=== PATIENT | female | born 1980 | race Hispanic/Latino ===

== ENCOUNTER 2016-08-30 08:04 | Inpatient (IN) | payer MEDICARE ==
--- NOTE | 2016-08-09 12:13 | Anesthesia Consultation ---
Anesthesia Consult and Med Hx Date of service: 08/30/16 - Airway Anesthetic Teeth Evaluation: Poor ROM Head & Neck: Adequate Mental/Hyoid Distance: Adequate Mallampati Class: Class II Intubation Access Assessment: Probably Good - Pulmonary Exam CTA: Yes - Cardiac Exam Cardiac Exam: RRR - Pre-Operative Health Status ASA Pre-Surgery Classification: ASA3 Proposed Anesthetic Plan: General - Pre-Anesthesia Comment Pre-Anesthesia Comments: edentulous on top. Remaining lower teeth broken and decayed - Pulmonary Hx Sleep Apnea: Yes (1YR, CPAP) - Central Nervous System Hx Seizures: Yes (6 WKS OF AGE - 13YRS OF AGE) - Other Systems Hx Obesity: Yes
[2016-08-09 12:41] LABS: Basophils % (Auto) 0.4 % (0.0-1.8); Hematocrit 39.8 % (30.3-42.9); Hemoglobin 13.2 gm/dl (10.1-14.3); Mean Corpuscular HGB Conc 33 % (30-34); Mean Corpuscular Hemoglobin 27 pg (28-32); Mean Corpuscular Volume 81 fl (79-97); Platelet Count 213 K/mm3 (140-440); Red Cell Distribution Width 14.7 % (13.2-15.2); White Blood Count 6.4 K/mm3 (4.5-11.0)
[2016-08-09 13:02] LABS: Alanine Aminotransferase 24 units/L (7-56); Albumin 4.1 g/dL (3.9-5); Albumin/Globulin Ratio 1.4 %; Alkaline Phosphatase 113 units/L (35-129); Anion Gap 17 mmol/L; Bilirubin,Total 0.6 mg/dL (0.1-1.2); Blood Urea Nitrogen 9 mg/dL (7-17); Calcium 9.9 mg/dL (8.4-10.2); Carbon Dioxide 25 mmol/L (22-30); Chloride 103.5 mmol/L (98-107); Glucose 108 mg/dL (65-100); Sodium 141 mmol/L (137-145); Total Protein 7.1 g/dL (6.3-8.2)
[~2016-08-30 08:04] MED LIST: LACTATED RINGERS 1,000 ML IV SCH; PEPCID IV NR; VERSED IV NR
[2016-08-30] MEDS ORDERED: DILAUDID IV PRN ×2 (09:17→14:58)
[2016-08-30] MEDS ORDERED: ZOFRAN IV PRN ×2 (09:17→14:58)
[2016-08-30] MEDS ORDERED: TRANSDERM-SCOP TD NR (10:00)
[2016-08-30] MEDS ORDERED: VERSED IV NR ×2 (10:00→15:01)
[2016-08-30] MEDS ORDERED: REGLAN IV NR (10:00)
[2016-08-30] MEDS ORDERED: FLAGYL 500 MG/100 ML 500 MG/100 ML BAG IV NR (11:00)
[2016-08-30] MEDS ORDERED: ANCEF/STERILE WATER 2 GM/20 ML IV NR (11:00)
[2016-08-30] MEDS ORDERED: LOVENOX SUB-Q NR (12:00)
[2016-08-30] MEDS ORDERED: SUBLIMAZE ONE (14:37)
[2016-08-30] MEDS ORDERED: ZEMURON IV ONE (14:37)
[2016-08-30] MEDS ORDERED: XYLOCAINE MPF 2% ONE (14:37)
[2016-08-30] MEDS ORDERED: DIPRIVAN 10 MG/ML IV ONE (14:38)
[2016-08-30] MEDS ORDERED: APRESOLINE IV PRN (14:58)
[2016-08-30] MEDS ORDERED: MYLICON PO PRN (14:58)
--- NOTE | 2016-08-30 15:09 | Admit Criteria Form ---
Admission Criteria Documentation: AMBULATORY SURGERY EXCEPTION CRITERIA Ambulatory Surgery Exception Criteria ( Place 'X' for any and all applicable criteria): Surgery or procedure performed on ambulatory basis may require inpatient stay for[A] ANY ONE of the following(1)(2)(3)(4)(5)(6)(7)(8)(9): [X] I. A preoperative situation, condition, or finding that warrants inpatient stay as indicated by ANY ONE of the following: [] a) Inpatient care needed because of severity of a disease or condition rather than the surgery (eg, severe cardiac or respiratory disease, severe infection) (15) (16 ) (17) (18) [] b) Emergent procedure (eg, angioplasty for acute ischemia)(19) [] c) Complex surgical approach or situation as indicated by ANY ONE of the following(3): [] i) Open approach needed instead of usual endoscopic, transcatheter, or other less invasive procedure [] ii) Difficult approach because of previous operation [] iii) Airway monitoring required after open neck procedures(20)(21) [] iv) Large mass requiring unusually extensive dissection [] v) Additional complicating feature requiring inpatient care (eg, drain management)(22(23): [X] d) Major surgery in a pt with high anesthetic risk as indicated by ANY ONE of the following (2)(3)(5)(7)(8): [X] i) ASA risk class III or higher (severe systemic disease impairing function) [D] [] ii) Advanced age (eg, older than 85 years)(14)(24) [] iii) Symptomatic heart failure(25) [] iv) Symptomatic asthma or COPD(8)(21) [] v) Morbid obesity with hemodynamic or respiratory problems(20)( 21)(26)(27) [] vi) Obstructive sleep apnea(20)(21) [] vii) Former premature infants who are younger than 60 weeks [] viii) High risk for severe postoperative abnormalities (eg, severe postoperative hypocalcemia after parathyroidectomy for severe hyperparathyroidism)(27)( 28) [] ix) Unstable angina(25) [] e) Drug-related risk requiring inpatient stay as indicated by ANY ONE of the following(5)(10)(14)(32)(33) [] i) Procedure requires discontinuing drugs or other therapy (eg , antiarrhythmic medication, antiseizure medication), which necessitates inpatient observation or treatment.(18)(31) [] ii) Major surgery and high risk drug use as indicated by ANY ONE of the following: [] 1) Active abuse of cocaine or similar drug [] 2) Monoamine oxidase inhibitor use [] 3) Other drug identified as posing risk [] f) Inadequate outpatient care situation as indicated by ANY ONE of the following(5)(10)(14)(32)(33) [] i) Patient lives remote from medical facility and procedure has urgent complication potential, and temporary nearby residence cannot be arranged [] ii) Patient will have postprocedure incapacitation and inadequate assistance at home, or alternative level of care cannot be arranged. [] iii) Patient will have long general anesthesia or procedure side effect resolution time, and competent person to stay with patient on first postoperative night at home or alternative level of care cannot be arranged. []iv) Other inadequate outpatient situation that cannot be handled by other means [] II. A perioperative event, condition, or finding that warrants inpatient stay as indicated by ANY ONE of the following (1)(2)(3): [] a) Inadequate physiologic recovery: cardiovascular, respiratory, or hemodynamic status not normal or near preoperative baseline(18) [] b) Hemodynamic instability [] c) Patient not alert with near normal or baseline mental status [] d) Temperature not normal or as expected and not appropriate for outpatient treatment of condition [] e) Ambulatory or appropriate activity level status not yet achieved post procedure [E](34)(35)(36) [] f) Operative site not appropriate (eg, unexpected or excessive drainage or bleeding) [] g) Postoperative effects not resolved or adequately managed (eg, significant pain or vomiting not appropriate for outpatient or next level of care)(10)(12) [] h) Complicating features requiring inpatient care as indicated by ANY ONE of the following(37): [] i) Severe complications of procedure (eg, bowel injury, airway compromise, vascular injury,severe hemorrhage) [] ii) Extensive (eg, dissection far beyond usual scope of procedure ) or prolonged (eg, 120 minutes beyond usual) surgery needed requiring inpatient postoperative care [] iii) Conversion to an open or complex procedure that requires inpatient care (eg, open vs laparoscopic cholecystectomy, abdominal vs vaginal hysterectomy)(38) [] iv) Comorbid condition or test result identified during or post procedure that requires inpatient care (7) [] v) Malignant hyperthermia(30) [] vi) Other complicating feature requiring inpatient care(22)(23) Inpatient stay may be needed until ALL of the following are present (1)(2)(3)(4) (5)(6)(10)(14)(33)(40): []a) Physiologic recovery: cardiovascular, respiratory, and hemodynamic status normal or near preoperative baseline []b) Hemodynamic stability []c) Patient alert, with near normal or baseline mental status []d) Temperature appropriate: patient afebrile or temperature appropriate for outpt treatment of condition []e) Activity level appropriate: ambulatory or appropriate activity level post procedure []f) Operative site appropriate as indicated by ALL of the following: []i) Site dry or with expected drainage []ii) Any blood noted is as expected for procedure. []g) Postoperative effects resolved or managed as indicated by ALL of the following: []i) Pain management appropriate for outpatient (or next level of) care(10) []ii) Minimal nausea and vomiting: if present, successfully treated with oral medication(12) []iii) Headache, dizziness, or drowsiness (if present) are mild. []h) Voiding status acceptable as indicated by ANY ONE of the following: []i) Voiding spontaneously []ii) No voiding but instructions given for follow-up in 6 to 8 hours []iii) Urinary catheter in place, and instructions given for follow-up []i) Complicating features requiring inpatient care manageable at a lower level of care(37) []j) Comorbid conditions manageable at a lower level of care(37) The original [employer] content created by [employer] has been revised. The portions of the content which have been revised are identified through the use of italic text or in bold, and [facility] [employer] has neither reviewed nor approved the modified material. All other unmodified content is copyright [employer]. Please see references footnoted in the original [employer] edition 2016 Admission Criteria Met: Yes
[2016-08-30] MEDS ORDERED: MARCAINE-EPI 0.5%-1:200,000 INFILTRATI ONE (15:16)
[2016-08-30] MEDS ORDERED: XYLOCAINE 1% 20 mL ONE (15:16)
[2016-08-30] MEDS ORDERED: QUELICIN ONE (15:29)
[2016-08-30] MEDS ORDERED: WATER FOR IRRIG STERILE IR ONE (15:31)
[2016-08-30] MEDS ORDERED: DECADRON ONE (15:53)
[2016-08-30] MEDS ORDERED: MARCAINE-EPI/PF 0.5%-1:200,000 INFILTRATI ONE (15:58)
[2016-08-30] MEDS ORDERED: NACL 0.9% IR ONE ×2 (15:58)
[2016-08-30] MEDS ORDERED: XYLOCAINE 1% 20 mL INFILTRATI ONE (15:58)
[2016-08-30] MEDS ORDERED: ZOFRAN ONE ×3 (16:23→16:24)
[2016-08-30] MEDS ORDERED: NEOSTIGMINE ONE (16:23)
[2016-08-30] MEDS ORDERED: ROBINUL ONE ×2 (16:24)
[2016-08-30] MEDS ORDERED: DILAUDID ONE (17:02)
--- NOTE | 2016-08-30 18:09 | Operative Report ---
Operative Report Operative Report: DATE OF PROCEDURE: 08/30/2016 SURGEON: Neil Banda M.D. UI SOFTWARE DEVELOPER: Willy Brody MD PREOPERATIVE DIAGNOSIS: Morbid obesity. POSTOPERATIVE DIAGNOSES: Morbid obesity PROCEDURES PERFORMED: 1. Laparoscopic gastric bypass. 2. EGD. ANESTHESIA: General endotracheal tube intubation. SPECIMENS: None. ESTIMATED BLOOD LOSS: Less than 10 mL. FINDINGS: Normal anatomy. COMPLICATIONS: None. INDICATION: is a 36-year-old female with history of morbid obesity. She signed informed consent and expressed understanding of risks and benefits. DESCRIPTION OF PROCEDURE: Patient was brought to the OR suite, laid in supine position. Bilateral lower extremity SCDs were placed. General anesthesia was induced via successful endotracheal tube intubation. Patient's abdomen was prepped and draped in sterile fashion. Using Optiview technique, a 12-mm trocar was placed into the abdominal cavity under direct vision. There was noted to be no gross injury to any intraabdominal structures. 5 working trocars were placed under direct visualization, 12 mm in the right mid abdomen mid clavicular line and four 5-mm trocars in the right upper quadrant, epigastric, left upper quadrant and left mid abdomen. At this time, the ligament of Treitz identified and followed down approximately 30 cm and the jejunum was transected. The distal segment of jejunum was then traced for approximately 75 cm and a stable gejp-yj-rkuf jejunojejunostomy was performed. The common enterotomy was closed with 2 firings of the endoscopic stapler. The mesenteric defect was closed with running Surgidac suture. This anastomosis was found to be patent without kink, obstruction or bleeding. At this time, the patient was placed in steep reverse Trendelenburg position. A liver retractor was placed through the epigastric port to elevate the left lateral lobe of the liver. A small gastric pouch was formed. The Amalia limb was then brought in an antegastric antecolic fashion and secured with 2 stay sutures to the gastric pouch. After this, the enterotomies were made with Harmonic scalpel, and a hofk-ov-lfoo stapled gastrojejunostomy was performed with a mechanical stapler. After this, a 2-layer running closure using Polysorb suture were done, the first being mucosal approximation prior to completion of the first layer. The anesthesia passed and an EGD scope beyond the anastomosis to act as a stent. The first layer was completed, the second was then performed. After this, the EGD was retracted slightly. A bowel clamp was placed in a proximal Amalia limb. The anastomosis was submerged under saline. Via intraluminal EGD insufflation, there was noted be no bubbles in the saline indicating an airtight anastomosis. There was noted to be no obstruction or bleeding intraluminally in the pouch or the anastomosis. At this time, the scope was removed. The saline was aspirated. Tiseel was placed over the anastomosis. All trocars were removed under direct visualization and the abdomen was then desufflated. The skin incisions were closed with 4-0 Monocryl followed by Dermabond dressings. Patient was awoken and taken to recovery in stable condition. All counts were correct.
[2016-08-30] MEDS: DILAUDID IV PRN ×5 (19:00→21:46)
[2016-08-30] MEDS ORDERED: FLAGYL 500 MG/100 ML 500 MG/100 ML BAG IV SCH (20:00)
[2016-08-30] MEDS ORDERED: ANCEF/NS 1 GM/50 ML 1 GM/50 ML BAG IV SCH (20:00)
[2016-08-30] MEDS: LACTATED RINGERS 1,000 ML IV SCH (22:44)
[2016-08-30] MEDS: ANCEF/NS 1 GM/50 ML 1 GM/50 ML BAG IV SCH (23:35)
[2016-08-31] MEDS: FLAGYL 500 MG/100 ML 500 MG/100 ML BAG IV SCH ×2 (00:02→08:20)
[2016-08-31] MEDS: TORADOL IV SCH ×3 (00:03→10:00)
[2016-08-31] MEDS: LACTATED RINGERS 1,000 ML IV SCH (06:01)
[2016-08-31 07:55] LABS: Phosphorous 2.8 mg/dL (2.5-4.5)
[2016-08-31] MEDS ORDERED: FLUARIX QUAD 2016-2017(36 MOS+) IM ONE (08:01)
[2016-08-31] MEDS: ANCEF/NS 1 GM/50 ML 1 GM/50 ML BAG IV SCH (08:19)
[2016-08-31] MEDS ORDERED: LOVENOX SUB-Q SCH (10:00)
[2016-08-31 10:50] LABS: Basophils % (Auto) 0.1 % (0.0-1.8); Hematocrit 35.5 % (30.3-42.9); Hemoglobin 11.5 gm/dl (10.1-14.3); Mean Corpuscular HGB Conc 33 % (30-34); Mean Corpuscular Hemoglobin 27 pg (28-32); Mean Corpuscular Volume 82 fl (79-97); Platelet Count 215 K/mm3 (140-440); Red Blood Count 4.33 M/mm3 (3.65-5.03); Red Cell Distribution Width 15.5 % (13.2-15.2); White Blood Count 10.9 K/mm3 (4.5-11.0)
[2016-08-31 11:04] LABS: Alanine Aminotransferase 26 units/L (7-56); Albumin 3.8 g/dL (3.9-5); Albumin/Globulin Ratio 1.4 %; Alkaline Phosphatase 86 units/L (35-129); Anion Gap 15 mmol/L; BUN/Creatinine Ratio 15.71; Bilirubin,Total 0.8 mg/dL (0.1-1.2); Blood Urea Nitrogen 11 mg/dL (7-17); Calcium 9.7 mg/dL (8.4-10.2); Carbon Dioxide 27 mmol/L (22-30); Chloride 103.3 mmol/L (98-107); Glucose 104 mg/dL (65-100); Potassium 4.6 mmol/L (3.6-5.0); Sodium 141 mmol/L (137-145); Total Protein 6.6 g/dL (6.3-8.2)
--- NOTE | 2016-08-31 12:05 | Discharge Summary ---
Providers - Providers Date of Admission: 08/30/16 08:04 Date of discharge: 08/31/16 Attending physician: NATA HU Primary care physician: TIRE RECAPPING MACHINE OPERATOR Hospitalization Reason for admission: post op observation Condition: Stable Procedures: Lap RYBG Hospital course: admitted for overnight observation.POD1 doing well tolerating sips and ambulating Disposition: DISCHARGED TO HOME OR SELFCARE Core Measure Documentation - Palliative Care Palliative Care/ Comfort Measures: Not Applicable - Core Measures Any of the following diagnoses?: none Exam - Physical Exam Narrative exam: NAD lungs clear heart RRR abd soft, appropriate wound TTP, wounds c/d/i Neuro: AAOx3 - Constitutional Vitals: Temp Pulse Resp BP Pulse Ox 97 F L 71 18 117/66 95 08/31/16 07:00 08/31/16 07:00 08/31/16 07:00 08/31/16 07:00 08/31/16 07:59 Plan Activity: advance as tolerated Diet: other (bariatric stage 1) Wound: keep clean and dry Special Instructions: no heavy lifting Follow up with: PRIMARY CAREMD [Primary Care Provider] - 7 Days
[2016-08-31 12:33] VITALS: BP 114/65
== END 2016-08-31 13:10 | disposition home or self-care (01) | DRG 327 ==
LOC: 3A 08:04 → 2B-SURG 18:57
PROVIDERS: ADMIT Surgery; ATTEND Surgery
PROC: 0D164ZA Bypass Stomach to Jejunum, Percutaneous Endoscopic Approach (ICD-10-PCS; principal; 2016-08-30)
PROC: 0DJ08ZZ Inspection of Upper Intestinal Tract, Via Natural or Artificial Opening Endoscopic (ICD-10-PCS; 2016-08-30)
DX: K21.9 Gastro-esophageal reflux disease without esophagitis (principal); Z68.42 Body mass index [BMI] 45.0-49.9, adult; E66.01 Morbid (severe) obesity due to excess calories; G47.30 Sleep apnea, unspecified; R53.83 Other fatigue; G35 Multiple sclerosis; M25.50 Pain in unspecified joint
CPT/HCPCS: 36415; 80053; 83735; 84100; 85025; 90686; 94760; A4217; C9250; J0330; J0690; J1100; J1170; J1650; J1885; J2250; J2405; J2704; J2710; J2765; J3010; J7120

== ENCOUNTER 2016-09-07 19:02 | Emergency (ER) | payer MEDICARE ==
[2016-09-07 20:33] LABS: Basophils % (Auto) 0.9 % (0.0-1.8); Hematocrit 41.5 % (30.3-42.9); Hemoglobin 13.7 gm/dl (10.1-14.3); Mean Corpuscular HGB Conc 33 % (30-34); Mean Corpuscular Hemoglobin 26 pg (28-32); Mean Corpuscular Volume 80 fl (79-97); Platelet Count 249 K/mm3 (140-440); Red Blood Count 5.19 M/mm3 (3.65-5.03); Red Cell Distribution Width 15.8 % (13.2-15.2); White Blood Count 7.4 K/mm3 (4.5-11.0)
[2016-09-07 20:53] LABS: Alanine Aminotransferase 43 units/L (7-56); Albumin 3.9 g/dL (3.9-5); Alkaline Phosphatase 102 units/L (35-129); Anion Gap 24 mmol/L; Bilirubin,Total 0.9 mg/dL (0.1-1.2); Blood Urea Nitrogen 10 mg/dL (7-17); Calcium 10.7 mg/dL (8.4-10.2); Carbon Dioxide 19 mmol/L (22-30); Chloride 100.9 mmol/L (98-107); Glucose 93 mg/dL (65-100); Lipase 19 units/L (13-60); Sodium 138 mmol/L (137-145)
[2016-09-07 21:08] LABS: Potassium 5.5 mmol/L (3.6-5.0)
--- NOTE | 2016-09-08 00:45 | Emergency Department Report ---
HPI - General Chief Complaint: Abdominal Pain Time Seen by Provider: 09/08/16 00:19 - HPI HPI: This is a 36-year-old female presents to the emergency department with a complaint of left middle abdominal pain. The patient had a gastric Amalia- en-Y bypass procedure done by Dr. Banda last Tuesday, 8 days ago. She had some normal discomfort since the procedure but this morning the pain became much more intense, 9 out of 10. It is associated with nausea without vomiting. She denies any fever. She's been taking the liquid Lortab for her discomfort without any relief. She is having normal bowel movements and urination. She denies any skin color change or signs of infection from the laparoscopic ports. She contacted the office of Dr. Morse was told to come to the emergency department for further evaluation and treatment. ED Past Medical Hx - Past Medical History Previous Medical History?: Yes Hx Hypertension: No Hx Congestive Heart Failure: No Hx Diabetes: No Hx Liver Disease: No Hx Renal Disease: No Hx Seizures: Yes (6 WKS OF AGE - 13YRS OF AGE) Hx Asthma: No Hx COPD: No Hx HIV: No - Surgical History Past Surgical History?: Yes Hx Cholecystectomy: Yes () Additional Surgical History: gastric bypass 08/30/16 - Social History Smoking Status: Never Smoker Substance Use Type: None - Medications Home Medications: Home Medications Medication Instructions Recorded Confirmed Last Taken Type No Known Home Medications [No 08/02/16 08/02/16 Unknown History Reported Home Medications] ED Review of Systems ROS: Stated complaint: PREV GASTRIC BYPASS SURGERY/SEVERE PAIN Other details as noted in HPI Comment: All other systems reviewed and negative Constitutional: denies: chills, fever Eyes: denies: eye pain, eye discharge, vision change ENT: denies: ear pain, throat pain Respiratory: denies: cough, shortness of breath, wheezing Cardiovascular: denies: chest pain, palpitations Gastrointestinal: abdominal pain, nausea. denies: vomiting Genitourinary: denies: urgency, dysuria, discharge Musculoskeletal: denies: back pain, joint swelling, arthralgia Skin: denies: rash, lesions Neurological: denies: headache, weakness, paresthesias Physical Exam - Physical Exam Vital Signs: Vital Signs 09/07/16 09/08/16 09/08/16 19:39 00:14 00:16 Temperature 98.2 F Pulse Rate 79 60 61 Respiratory 18 18 Rate Blood Pressure 138/80 161/68 O2 Sat by Pulse 100 99 Oximetry 09/08/16 00:21 Temperature Pulse Rate Respiratory 18 Rate Blood Pressure O2 Sat by Pulse 98 Oximetry Physical Exam: GENERAL: The patient is well-developed well-nourished. HEENT: Normocephalic. Atraumatic. Extraocular motions are intact. Patient has moist mucous membranes. Pupils equal reactive to light bilaterally. NECK: Supple. Trachea is midline. CHEST/LUNGS: Clear to auscultation. There is no respiratory distress noted. HEART/CARDIOVASCULAR: Regular. There is no tachycardia. There is no gallop rub or murmur. ABDOMEN: Abdomen is soft. There is some tenderness to palpation to the left mid abdomen. No guarding or rebound tenderness. Morbidly obese habitus. Patient has normal bowel sounds. There is no abdominal distention. SKIN: There are 3 specific laparoscopic incision seen on the abdominal wall but they do not appear infected without any erythema, bleeding, weeping or drainage. NEURO: The patient is awake, alert, and oriented. The patient is cooperative. The patient has no focal neurologic deficits. The patient has normal speech. MUSCULOSKELETAL: There is no tenderness or deformity. There is no limitation range of motion. There is no evidence of acute injury. ED Course Vital Signs 09/07/16 09/08/16 09/08/16 19:39 00:14 00:16 Temperature 98.2 F Pulse Rate 79 60 61 Respiratory 18 18 Rate Blood Pressure 138/80 161/68 O2 Sat by Pulse 100 99 Oximetry 09/08/16 00:21 Temperature Pulse Rate Respiratory 18 Rate Blood Pressure O2 Sat by Pulse 98 Oximetry - Consultations Consultation #1: I spoke with the bariatric surgeon community education specialist for this patient, Dr Sr, who based on the patient's level of discomfort has suggested a CT of the abdomen and pelvis. If it is positive for any acute process, he would like to be called back. Otherwise he suggests follow-up in the office. 09/08/16 06:20 ED Medical Decision Making - Lab Data Result diagrams: 09/07/16 20:15 09/08/16 01:58 - Radiology Data Radiology results: report reviewed, image reviewed interpreted by me: Abdominal x-ray shows some nonspecific nonobstructive bowel gas. CT of the abdomen and pelvis with contrast shows that there has been a previous cholecystectomy. There has been gastric bypass surgery. There is no bowel obstruction, colitis or enteritis. The appendix is normal. There is been a hysterectomy. There is no ascites, free air, abscess or adenopathy. There is intravascular air in the subcutaneous vessels of the anterior abdominal wall that is most likely iatrogenic. - Medical Decision Making 36-year-old female presents to the emergency department about 8 or 9 days postop from gastric bypass surgery. She always has some level of discomfort but it increased today. Patient's labs appeared mostly unremarkable. There was some elevation in her potassium level but was found to be hemolyzed and the repeat potassium level came back at 4.5. No signs of infection without any leukocytosis. Normal belly labs. Patient was given some IV pain medication for pain control with some improvement. An abdominal x-ray was done that showed nonspecific non-obstructive bowel gas. After speaking with the bariatric surgeon, patient had a CT of the abdomen and pelvis that did not show any bowel obstruction or any acute process. Patient will be discharged home to follow-up with Dr. Banda in the office in the next few days. We're waiting on the patient's urinalysis to see if any antibiotics need to be added for a urinary tract infection. - Differential Diagnosis postop pain, bowel obstruction, UTI, colitis Critical Care Time: No Critical care attestation.: If time is entered above; I have spent that time in minutes in the direct care of this critically ill patient, excluding procedure time. ED Disposition Clinical Impression: Postoperative pain Abdominal pain Qualifiers: Abdominal location: generalized Qualified Code(s): R10.84 - Generalized abdominal pain Disposition: DISCHARGED TO HOME OR SELFCARE Is pt being admited?: No Condition: Stable Instructions: Abdominal Pain (ED) Additional Instructions: Please follow-up with Dr. Banda in the next few days. Return to the emergency department with any intractable vomiting or fever, intractable abdominal pain, worsening of her symptoms, or any acute process. Referrals: PRIMARY CARE, [Primary Care Provider] - 3-5 Days NATA BANDA MD [Staff Physician] - 3-5 Days Time of Disposition: 06:24
[2016-09-08] MEDS ORDERED: MORPHINE IV ONE ×2 (00:55→02:14)
[2016-09-08] MEDS ORDERED: ZOFRAN IV ONE ×2 (00:55→06:01)
--- NOTE | 2016-09-08 02:38 | XRay Report ---
FINAL REPORT EXAM: XR ABDOMEN 2V HISTORY: Abd pain COMPARISON: None available. FINDINGS: Supine and upright AP views of the abdomen obtained. No gross free air. Gas scattered within non dilated bowl loops. No gross pathologic calcifications. Bony structures are grossly intact. Surgical clips right upper quadrant. IMPRESSION: Nonobstructive bowel gas pattern.
[2016-09-08] MEDS ORDERED: DILAUDID IV ONE (04:12)
[2016-09-08] MEDS ORDERED: NACL ONE (04:36)
[2016-09-08] MEDS ORDERED: ZOFRAN ONE (05:55)
--- NOTE | 2016-09-08 06:05 | Cat Scan Report ---
FINAL REPORT PROCEDURE: CT ABDOMEN PELVIS W CON TECHNIQUE: Computerized axial tomography of the abdomen and pelvis was performed after the IV injection of iodinated nonionic contrast. HISTORY: abd pain s/p gastric bypass 1 week COMPARISON: No prior studies are available for comparison. FINDINGS: Visualized lower thorax: No significant abnormality. Liver: Normal size and attenuation. Spleen: Normal size and attenuation. Gallbladder and biliary system: There has been a cholecystectomy.. Pancreas: Normal. Adrenals: Normal. Kidneys: Normal. GI tract: There has been gastric bypass surgery. There is no bowel obstruction, colitis or enteritis. The appendix is normal.. Lymph nodes and mesentery: Normal. Vasculature: Normal. Bladder: Normal. Reproductive organs: There has been a hysterectomy.. Peritoneum: There is no ascites, free air, abscess or adenopathy.. Musculoskeletal structures: No significant abnormality. Other: There is intravascular air in the subcutaneous vessels of the anterior abdominal wall which is most likely iatrogenic.. IMPRESSION: There has been a cholecystectomy.. There has been gastric bypass surgery. There is no bowel obstruction, colitis or enteritis. The appendix is normal.. There has been a hysterectomy.. There is no ascites, free air, abscess or adenopathy.. There is intravascular air in the subcutaneous vessels of the anterior abdominal wall which is most likely iatrogenic..
[2016-09-08 06:44] LABS: Bacteria,Urine 1+ /HPF (Negative); Bilirubin,Urine NEG (Negative); Blood,Urine NEG (Negative); Ketones,Urine 80 mg/dL (Negative); Leukocyte Esterase,Urine NEG (Negative); Mucus,Urine 2+ /HPF; Nitrite,Urine NEG (Negative); Protein,Urine <15 mg/dL mg/dL (Negative)
[2016-09-08 06:52] VITALS: BP 124/76
== END 2016-09-08 07:13 | disposition home or self-care (01) ==
LOC: ED 19:02
DX: R10.84 Generalized abdominal pain (principal); G89.18 Other acute postprocedural pain
CPT/HCPCS: 36415; 74020; 74177; 80053; 81001; 81025; 83690; 84132; 85025; 96374; 96375; 96376; 99284; J1170; J2270; J2405; Q9967

== ENCOUNTER 2016-09-13 00:15 | Emergency (ER) | payer MEDICARE ==
[2016-09-13 01:31] LABS: Basophils % (Auto) 0.8 % (0.0-1.8); Hemoglobin 13.6 gm/dl (10.1-14.3); Mean Corpuscular HGB Conc 33 % (30-34); Mean Corpuscular Hemoglobin 27 pg (28-32); Mean Corpuscular Volume 80 fl (79-97); Platelet Count 242 K/mm3 (140-440); Red Blood Count 5.15 M/mm3 (3.65-5.03); Red Cell Distribution Width 15.4 % (13.2-15.2); White Blood Count 8.4 K/mm3 (4.5-11.0)
[2016-09-13 01:40] LABS: Alanine Aminotransferase 37 units/L (7-56); Albumin 4.2 g/dL (3.9-5); Albumin/Globulin Ratio 1.3 %; Alkaline Phosphatase 103 units/L (35-129); Anion Gap 18 mmol/L; Bilirubin,Total 0.8 mg/dL (0.1-1.2); Blood Urea Nitrogen 9 mg/dL (7-17); Calcium 10.9 mg/dL (8.4-10.2); Carbon Dioxide 24 mmol/L (22-30); Chloride 101.6 mmol/L (98-107); Glucose 100 mg/dL (65-100); Lipase 19 units/L (13-60); Potassium 4.8 mmol/L (3.6-5.0); Sodium 139 mmol/L (137-145); Total Protein 7.5 g/dL (6.3-8.2)
[2016-09-13 05:51] LABS: Bilirubin,Urine NEG (Negative); Blood,Urine NEG (Negative); Ketones,Urine 20 mg/dL (Negative); Leukocyte Esterase,Urine NEG (Negative); Nitrite,Urine NEG (Negative)
[2016-09-13] MEDS ORDERED: NACL 0.9% 1000 ML 1,000 ML IV ONE (07:02)
[2016-09-13] MEDS ORDERED: ZOFRAN IV ONE (07:02)
[2016-09-13] MEDS ORDERED: DILAUDID IV ONE ×2 (07:02→09:40)
--- NOTE | 2016-09-13 07:03 | Emergency Department Report ---
ED Abdominal Pain HPI - General Chief Complaint: Abdominal Pain Stated Complaint: ABD PAIN Time Seen by Provider: 09/13/16 06:54 Source: patient, RN notes reviewed, old records reviewed Mode of arrival: Ambulatory Limitations: No Limitations - History of Present Illness Initial Comments: This is a 36-year-old female. She is previously unknown to me. Her bariatric surgeon is Dr. Banda. On 08/30/2016, the patient had a laparoscopic gastric bypass with EGD. The patient presents to the ER today with left lower quadrant pain and diffuse abdominal pain, nausea and vomiting. Pain has been present for 2 days. It is sharp. It does not radiate anywhere. It increases with palpation, decreases with rest. Denies irritative and obstructive urinary symptoms. Denies chest pain or shortness of breath. Reports that she is passing gas normally, but not defecating normally. She reports that she is not . Emesis is clear, nonbloody and nonbilious. MD Complaint: abdominal pain -: Gradual Location: diffuse, LLQ Radiation: none Severity: moderate Severity scale (0 -10): 7 Quality: cramping, aching Consistency: constant Improves With: medication, rest Worsens With: movement Associated Symptoms: nausea, vomiting - Related Data Home Medications Medication Instructions Recorded Confirmed Last Taken HYDROcodone/ACETAMINOPHEN [Lortab 7.5 mg PO BID 09/13/16 09/13/16 Unknown 10 mg-300 mg per 15 ML ORAL LIQ] Previous Rx's Medication Instructions Recorded Last Taken Type LORazepam [Ativan] 0.5 mg PO BID #30 tab 09/13/16 Unknown Rx Metoclopramide [Reglan] 10 mg PO QID PRN #30 tab 09/13/16 Unknown Rx Sucralfate [Carafate] 1 gm PO Q6HR #5 udc 09/13/16 Unknown Rx Allergies Allergy/AdvReac Type Severity Reaction Status Date / Time cortisone Allergy Shortness Verified 08/02/16 15:09 of Breath latex Allergy Rash Verified 08/02/16 15:09 ED Review of Systems ROS: Stated complaint: ABD PAIN Other details as noted in HPI Constitutional: malaise ENT: denies: dental pain, epistaxis Respiratory: denies: cough Cardiovascular: denies: chest pain Gastrointestinal: abdominal pain, nausea, vomiting Genitourinary: denies: urgency, dysuria Musculoskeletal: denies: back pain Skin: denies: lesions Neurological: weakness Psychiatric: as per HPI ED Past Medical Hx - Past Medical History Previous Medical History?: Yes Hx Hypertension: No Hx Congestive Heart Failure: No Hx Diabetes: No Hx Liver Disease: No Hx Renal Disease: No Hx Seizures: Yes (6 WKS OF AGE - 13YRS OF AGE) Hx Asthma: No Hx COPD: No Hx HIV: No - Surgical History Past Surgical History?: Yes Hx Cholecystectomy: Yes () Additional Surgical History: gastric bypass 08/30/16 - Social History Smoking Status: Never Smoker Substance Use Type: None - Medications Home Medications: Home Medications Medication Instructions Recorded Confirmed Last Taken Type HYDROcodone/ACETAMINOPHEN [Lortab 7.5 mg PO BID 09/13/16 09/13/16 Unknown History 10 mg-300 mg per 15 ML ORAL LIQ] LORazepam [Ativan] 0.5 mg PO BID #30 tab 09/13/16 Unknown Rx Metoclopramide [Reglan] 10 mg PO QID PRN #30 tab 09/13/16 Unknown Rx Sucralfate [Carafate] 1 gm PO Q6HR #5 udc 09/13/16 Unknown Rx ED Physical Exam - General General appearance: obese - Head Head exam: Present: atraumatic, normocephalic - Eye Eye exam: Present: normal appearance, EOMI. Absent: nystagmus - ENT ENT exam: Present: normal exam, normal orophraynx, mucous membranes moist, normal external ear exam - Neck Neck exam: Present: normal inspection, full ROM. Absent: tenderness, meningismus - Respiratory Respiratory exam: Present: normal lung sounds bilaterally. Absent: respiratory distress, wheezes, rales, rhonchi, stridor, decreased breath sounds - Cardiovascular Cardiovascular Exam: Present: regular rate, normal rhythm, normal heart sounds. Absent: bradycardia, tachycardia, irregular rhythm, systolic murmur, diastolic murmur, rubs, gallop - GI/Abdominal GI/Abdominal exam: Present: soft, tenderness, guarding, other (numerous surgical scars are noted, surgical sites appear to be clean and healing well.) - Extremities Exam Extremities exam: Present: normal inspection, full ROM, normal capillary refill. Absent: tenderness, pedal edema, joint swelling, calf tenderness - Back Exam Back exam: Present: normal inspection. Absent: full ROM, tenderness, CVA tenderness (R), CVA tenderness (L), muscle spasm, paraspinal tenderness, vertebral tenderness - Neurological Exam Neurological exam: Present: alert, oriented X3, other (Extraocular movements intact. Tongue midline. No facial droop. Facial sensation intact to light touch in the V1, V2, V3 distribution bilaterally. 5 and 5 strength in 4 extremities.. Sensation is intact to light touch in 4 extremities.). Absent: motor sensory deficit - Psychiatric Psychiatric exam: Present: normal affect, normal mood - Skin Skin exam: Present: warm, dry, intact, normal color. Absent: rash ED Course Vital Signs 09/13/16 09/13/16 09/13/16 00:37 04:08 04:11 Temperature 98.7 F 98.5 F Pulse Rate 89 60 Respiratory 20 20 Rate Blood Pressure 146/80 Blood Pressure 143/93 [Left] O2 Sat by Pulse 99 99 99 Oximetry 09/13/16 09:46 Temperature Pulse Rate 85 Respiratory 15 Rate Blood Pressure Blood Pressure 128/72 [Left] O2 Sat by Pulse 95 Oximetry - Reevaluation(s) Reevaluation #1: 09/13/16 07:35 Differential diagnosis: Bleeding, infection, damage to adjacent structures, internal hernia, Mejia's hernia, obstruction Assessment and plan: 36-year-old female with diffuse abdominal tenderness, nausea and vomiting. Lactic acid is pending. CT scan of the abdomen and pelvis is pending. I have requested that the patient's private bariatric surgeon be paged, I am waiting for them to call back. Patient reports that she is having a great deal of difficulty tolerating liquid feeds, and is unable to tolerate oral contrast. Given her recent gastric bypass and the patient's preference, I will not insert an OG tube at this time. In the interest of obtaining expedient diagnosis, patient is consented for CT scan with IV contrast. We will reassess after CT scan has resulted. Reevaluation #2: 09/13/16 08:25 Patient is seen and evaluated by the bariatric surgeon, Dr. Brody, who works with Dr. Banda. He has personally examined the patient, and reports that her presentation today is somewhat prior episodes. Recommends oral contrast to evaluate the esophagus and stomach. He indicates that we do not need to wait the full 2 hours after oral contrast administration. 09/13/16 10:45 Reevaluation #3: 04/03/17 10:49 patient tolerated oral contrast without difficulty. No active vomiting. Feels improved after additional pain medication. CT scan negative. Reevaluation #4: 09/13/16 11:42 case is re discussed with Dr Brody. The patient tolerated oral contrast without difficulty. There is no active vomiting. Belly still somewhat tender. As per the surgical team, this is chronic, not new, worsening or different. The bariatric surgeon recommends Reglan, 10 mg 4 times a day, Ativan, 0.5 mg twice daily, and Carafate, 1 mg every 6 hours, and recommends that the patient follow up in their office within the next week. ED Medical Decision Making - Lab Data Result diagrams: 09/13/16 00:59 09/13/16 00:59 Vital Signs 09/13/16 09/13/16 09/13/16 00:37 04:08 04:11 Temperature 98.7 F 98.5 F Pulse Rate 89 60 Respiratory 20 20 Rate Blood Pressure 146/80 Blood Pressure 143/93 [Left] O2 Sat by Pulse 99 99 99 Oximetry Lab Results 09/13/16 09/13/16 09/13/16 Range/Units 00:59 00:59 05:42 WBC 8.4 (4.5-11.0) K/mm3 RBC 5.15 H (3.65-5.03) M/mm3 Hgb 13.6 (10.1-14.3) gm/dl Hct 41.0 (30.3-42.9) % MCV 80 (79-97) fl MCH 27 L (28-32) pg MCHC 33 (30-34) % RDW 15.4 H (13.2-15.2) % Plt Count 242 (140-440) K/mm3 Lymph % (Auto) 29.9 (13.4-35.0) % [place] % (Auto) 8.5 H (0.0-7.3) % Eos % (Auto) 0.0 (0.0-4.3) % Baso % (Auto) 0.8 (0.0-1.8) % Lymph # 2.5 (1.2-5.4) K/mm3 [place] # 0.7 (0.0-0.8) K/mm3 Eos # 0.0 (0.0-0.4) K/mm3 Baso # 0.1 (0.0-0.1) K/mm3 Seg Neutrophils % 60.8 (40.0-70.0) % Seg Neutrophils # 5.1 (1.8-7.7) K/mm3 Sodium 139 (137-145) mmol/L Potassium 4.8 (3.6-5.0) mmol/L Chloride 101.6 (98-107) mmol/L Carbon Dioxide 24 (22-30) mmol/L Anion Gap 18 mmol/L BUN 9 (7-17) mg/dL Creatinine 0.6 L (0.7-1.2) mg/dL Estimated GFR > 60 ml/min BUN/Creatinine Ratio 15.00 % Glucose 100 (65-100) mg/dL Calcium 10.9 H (8.4-10.2) mg/dL Total Bilirubin 0.8 (0.1-1.2) mg/dL AST 27 (5-40) units/L ALT 37 (7-56) units/L Alkaline Phosphatase 103 (35-129) units/L Total Protein 7.5 (6.3-8.2) g/dL Albumin 4.2 (3.9-5) g/dL Albumin/Globulin Ratio 1.3 % Lipase 19 (13-60) units/L Urine Color Danita (Yellow) Urine Turbidity Cloudy (Clear) Urine pH 5.0 (5.0-7.0) Ur Specific [place] 1.030 (1.003-1.030) Urine Protein 30 mg/dl (Negative) mg/dL Urine Glucose (UA) Neg (Negative) mg/dL Urine Ketones 20 (Negative) mg/dL Urine Blood Neg (Negative) Urine Nitrite Neg (Negative) Urine Bilirubin Neg (Negative) Urine Urobilinogen 4.0 (<2.0) mg/dL Ur Leukocyte Esterase Neg (Negative) Urine WBC (Auto) 0.0 (0.0-6.0) /HPF Urine RBC (Auto) 0.0 (0.0-6.0) /HPF U Epithel Cells (Auto) < 1.0 (0-13.0) /HPF Urine HCG, Qual (Negative) 09/13/16 Range/Units 05:42 WBC (4.5-11.0) K/mm3 RBC (3.65-5.03) M/mm3 Hgb (10.1-14.3) gm/dl Hct (30.3-42.9) % MCV (79-97) fl MCH (28-32) pg MCHC (30-34) % RDW (13.2-15.2) % Plt Count (140-440) K/mm3 Lymph % (Auto) (13.4-35.0) % [place] % (Auto) (0.0-7.3) % Eos % (Auto) (0.0-4.3) % Baso % (Auto) (0.0-1.8) % Lymph # (1.2-5.4) K/mm3 [place] # (0.0-0.8) K/mm3 Eos # (0.0-0.4) K/mm3 Baso # (0.0-0.1) K/mm3 Seg Neutrophils % (40.0-70.0) % Seg Neutrophils # (1.8-7.7) K/mm3 Sodium (137-145) mmol/L Potassium (3.6-5.0) mmol/L Chloride (98-107) mmol/L Carbon Dioxide (22-30) mmol/L Anion Gap mmol/L BUN (7-17) mg/dL Creatinine (0.7-1.2) mg/dL Estimated GFR ml/min BUN/Creatinine Ratio % Glucose (65-100) mg/dL Calcium (8.4-10.2) mg/dL Total Bilirubin (0.1-1.2) mg/dL AST (5-40) units/L ALT (7-56) units/L Alkaline Phosphatase (35-129) units/L Total Protein (6.3-8.2) g/dL Albumin (3.9-5) g/dL Albumin/Globulin Ratio % Lipase (13-60) units/L Urine Color (Yellow) Urine Turbidity (Clear) Urine pH (5.0-7.0) Ur Specific [place] (1.003-1.030) Urine Protein (Negative) mg/dL Urine Glucose (UA) (Negative) mg/dL Urine Ketones (Negative) mg/dL Urine Blood (Negative) Urine Nitrite (Negative) Urine Bilirubin (Negative) Urine Urobilinogen (<2.0) mg/dL Ur Leukocyte Esterase (Negative) Urine WBC (Auto) (0.0-6.0) /HPF Urine RBC (Auto) (0.0-6.0) /HPF U Epithel Cells (Auto) (0-13.0) /HPF Urine HCG, Qual Negative (Negative) - Radiology Data Radiology results: report reviewed ct scan negative Critical care attestation.: If time is entered above; I have spent that time in minutes in the direct care of this critically ill patient, excluding procedure time. ED Disposition Clinical Impression: Abdominal pain Disposition: DISCHARGED TO HOME OR SELFCARE Is pt being admited?: No Does the pt Need Aspirin: No Condition: Stable Instructions: Abdominal Pain (ED) Additional Instructions: Take the medications as directed. If taking the Ativan, do not combine with [place], hydrocodone, or narcotic pain medication. Follow up with your surgeon within the next week. Return to the ER right away with new pain, worsening pain , migration of pain, fevers or chills, intractable nausea or vomiting, inability to tolerate liquid feeds. Prescriptions: LORazepam [Ativan] 0.5 mg PO BID #30 tab Metoclopramide [Reglan] 10 mg PO QID PRN #30 tab PRN Reason: Nausea Sucralfate [Carafate] 1 gm PO Q6HR #5 [facility] [place] Referrals: PRIMARY CAREMD [Primary Care Provider] - 3-5 Days NATA BANDA MD [Staff Physician] - 3-5 Days
[2016-09-13] MEDS ORDERED: NACL ONE (09:08)
[2016-09-13 09:47] VITALS: BP 128/72
--- NOTE | 2016-09-13 10:29 | Cat Scan Report ---
CT scan of abdomen and pelvis with IV contrast: Compared to 09/08/16. History: Left lower quadrant abdominal pain. Findings: Normal lung bases. No pleural pericardial effusion. Normal liver spleen pancreas. Patient status post cholecystectomy. Normal adrenal glands. Normal kidney parenchyma. Normal bladder. No free intraperitoneal fluid. No evidence of adenopathy. Normal aorta. Gaseous colon with minimal stool in colon. No evidence of appendicitis or diverticulitis. Impression: Gaseous colon with minimal stool in colon.
== END 2016-09-13 12:21 | disposition home or self-care (01) ==
LOC: ED 00:15
DX: R10.32 Left lower quadrant pain (principal); Z90.49 Acquired absence of other specified parts of digestive tract
CPT/HCPCS: 36415; 74177; 80053; 81001; 81025; 82140; 83690; 85025; 96361; 96374; 96375; 96376; 99284; J1170; J2405; J7030; Q9967

== ENCOUNTER 2021-01-26 13:35 | Emergency (ER) | payer OTHER, MEDICARE ==
[2021-01-26 15:53] VITALS: BP 139/72
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
[2021-01-26 17:18] LABS: Alanine Aminotransferase 13 units/L (7-56); Albumin 4.3 g/dL (3.9-5); Blood Urea Nitrogen 11 mg/dL (7-17); Calcium 11.1 mg/dL (8.4-10.2); Hemolysis Index 31
[2021-01-26 17:20] LABS: Mean Corpuscular HGB Conc 30 % (30-34); Mean Corpuscular Volume 81 fl (79-97); Red Blood Count 4.58 M/mm3 (3.65-5.03); Red Cell Distribution Width 18.7 % (13.2-15.2)
[2021-01-26 17:28] LABS: BUN/Creatinine Ratio 28; Hematocrit 37.1 % (30.3-42.9); Hemoglobin 11.1 gm/dl (10.1-14.3); Platelet Count 193 K/mm3 (140-440)
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
[2021-01-26 19:01] LABS: Anisocytosis Few; Hypochromasia 1+; Total Cells Counted 100
== END 2021-01-27 10:10 | disposition home or self-care (01) ==
LOC: ED 13:35
DX: R07.9 Chest pain, unspecified (principal); Z53.21 Procedure and treatment not carried out due to patient leaving prior to being seen by health care provider
CPT/HCPCS: 36415; 70450; 72100; 72125; 72170; 80053; 84703; 85007; 85025